=== PATIENT | female | born 1950 | race Hispanic/Latino ===

== ENCOUNTER → 2022-02-06 | Outpatient (CLI) | payer OTHER | END | disposition home or self-care (01) | LOC: RAH 11:14 | PROVIDERS: ATTEND Orthopaedic Surgery | DX: S83.241A Other tear of medial meniscus, current injury, right knee, initial encounter (principal); M71.21 Synovial cyst of popliteal space [Baker], right knee; M23.91 Unspecified internal derangement of right knee; M25.461 Effusion, right knee; X58.XXXA Exposure to other specified factors, initial encounter; Y93.89 Activity, other specified; Y92.89 Other specified places as the place of occurrence of the external cause; Y99.8 Other external cause status | CPT/HCPCS: 73721 ==

== ENCOUNTER → 2023-03-31 | Outpatient (CLI) | payer OTHER | END | disposition home or self-care (01) | LOC: RAH 10:18 | PROVIDERS: ATTEND Family Medicine | DX: R51.9 Headache, unspecified (principal) | CPT/HCPCS: 70450 ==

== ENCOUNTER → 2024-02-22 | Outpatient (CLI) | payer OTHER | END | disposition home or self-care (01) | LOC: LAB 11:31 | PROVIDERS: ATTEND Internal Medicine Cardiovascular Disease | DX: R06.09 Other forms of dyspnea (principal); R06.00 Dyspnea, unspecified | CPT/HCPCS: 36415; 83880 ==

== ENCOUNTER 2025-03-17 06:16 | Day surgery (SDC) | payer OTHER ==
[2025-03-16 11:52] VITALS: BP 117/62; PULSE 62; RESP 18; TEMP 97.7
[~2025-03-17] VITALS: Ht 154.9 cm; Wt 70.3 kg
[2025-03-17] VITALS (13 sets, daily range): BP systolic 120–134; BP diastolic 60–80; PULSE 49–79; RESP 14–21; TEMP 97.4–97.7
[~2025-03-17 06:16] MED LIST: ASPI-1443 PO; ATOR10TA69 PO; LEVO75CA6 PO; SEMA1PEN3 SQ
[2025-03-17] MEDS ORDERED: MIDAZOLAM HCL 1 MG/ML 2ML VIAL ONE (08:07)
[2025-03-17] MEDS ORDERED: LIDOCAINE PF 100MG/5ML (2%) SYRINGE 5ML ONE (08:08)
[2025-03-17] MEDS ORDERED: NEOSTIGMINE METHYLSULFATE 1MG/ML IV ONE (08:09)
[2025-03-17] MEDS ORDERED: GLYCOPYRROLATE 0.2 MG/ML 5 ML VIAL ONE (08:09)
[2025-03-17] MEDS: LACTATED RINGERS 1000ML 1,000 ML IV ONE (08:10)
[2025-03-17] MEDS ORDERED: ACET-2079 PO (09:53)
[2025-03-17] MEDS ORDERED: CEPH500B PO (09:53)
--- NOTE | 2025-03-17 10:08 | OP ---
Operative Note: DATE OF PROCEDURE: 03/17/25 SURGEON: CRYSTAL JACOBSEN MD HEALTHCARE CONSULTANT: [Aye Reyes [facility]] ANESTHESIA: [General] ANESTHESIOLOGIST/DUST MOP MAKER: [Dr. Ferreira, anesthesiologist] PREOPERATIVE DIAGNOSIS: [Left shoulder lateral deltoid pain, small demonstrate a lipoma] POSTOPERATIVE DIAGNOSIS: [The shoulder lateral that the pain, multiple areas of fatty infiltration so of the patella with at least three small fatty clumps in the muscle fibers off the deltoid] PROCEDURE: [Left arm lateral deltoid exploration with removal of multiple fatty clumps interdigitated with the deltoid fibers] ESTIMATED BLOOD LOSS: [Less than 10 mL] INDICATIONS: [The patient is a 74-year-old female the complaints of pain to the lateral aspect of the deltoid and is present mostly when she lays on it. 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 In the office the patient complained of pain mostly in the anterolateral aspect of the deltoid and the shoulder range of motion was full and painless. She had a mild prominence of the deltoid area with palpation. In the preop area the patient reported that the pain was mostly in the posterior deltoid.] DESCRIPTION OF PROCEDURE: [After adequate general anesthesia was achieved the patient was placed in the beach chair position and the left upper extremity was prepped and draped in the usual manner. The area previously marked with the possibility of soft tissue masses was opened making a longitudinal incision in the lateral aspect of the deltoid muscle to the skin which was followed by dissection of the subcutaneous tissue. The deltoid thin fascia was identified and then the subcutaneous tissue was dissected free of it anteriorly and posteriorly. We then proceeded to palpate the anterior middle and posterior deltoid and with a defined a small nodular lesion that we then opened the fibers of the deltoid noticing that the patient has else small clump of fatty tissue that was not encapsulated but not infiltrating but just attached to the muscle fibers this tissue was easy to remove and had no of normal vascularity. Then we noticed that the patient had other multiple areas of longitudinal fatty lesions which upon dissection were noted to be in the same trajectory as the fibers of the deltoid well defined. A 2nd small clump of fatty tissue was found in the posterolateral aspect of the deltoid and the same, this was not encapsulated it was slightly more enlarged that the longitudinal of fatty lesions present and the scribe and loosely attached to the muscle fibers. A segment of the this was sent to pathology for evaluation. Upon opening of other portions of the deltoid more fatty lines were found. No encapsulation was found like the ones described in the MRI of the small lipoma 0.5 cm. The muscular fibers were not disrupted but just to be able to identified the lesions and dissected. The deltoid muscle was then palpated directly under the subcutaneous tissue proximally anteriorly medially and posteriorly and no obvious mass was identified. After irrigation of the wound was carried down with the antibiotic solution we proceeded then to infiltrate the subcutaneous tissue with Marcaine 0.25% and then the subcutaneous tissue was closed with 2-0 Vicryl inverted stitches and the skin was closed with 3-0 Monocryl subcuticularly. Dermabond was used to cover the incision and a nonadherent dressing was then applied to cover this incision. The patient was then placed in the supine position after the drapes were removed she was awakened and extubated and taken to recovery room for follow-up by anesthesia. There were no complications during the procedure] CRYSTAL JACOBSEN MD Mar 17, 2025 10:08
--- NOTE | 2025-03-17 11:05 | NUR ---
BOTH PT AND SPOUSE GIVEN VERBAL AND WRITTEN DISCHARGE INSTRUCTIONS. IV REMOVED SITE ASYMPTOMATIC. PT TAKEN OUT VIA WHEELCHAIR SPOUSE DRIVING.
== END 2025-03-17 11:25 | disposition home or self-care (01) ==
LOC: DAH 06:16
PROVIDERS: ATTEND Orthopaedic Surgery
DX: D17.22 Benign lipomatous neoplasm of skin and subcutaneous tissue of left arm (principal); M25.512 Pain in left shoulder; E11.9 Type 2 diabetes mellitus without complications; E78.5 Hyperlipidemia, unspecified; E05.90 Thyrotoxicosis, unspecified without thyrotoxic crisis or storm; Z79.899 Other long term (current) drug therapy; Z98.890 Other specified postprocedural states
CPT/HCPCS: 23076; 82948 ×2; 88304; A6260; A4663; J7030; J7120; J3010; J0665 ×2; J3490 ×3; J2003; J2250; J2704; J2405; J2710; J2371; J0690; A6223; A4649 ×2; A4930; A4215; A4223; A4213; A4222; A4221; A6450; A4600